=== PATIENT | male | born 1980 | race Hispanic/Latino ===

== ENCOUNTER → 2018-04-29 | Outpatient (CLI) | payer OTHER ==
[~2018-04-29] MED LIST: DIATRIZOATE MEGL/DIATRIZOA SOD 30 ML BTL PO ONE; IOPAMIDOL 370 MG/ML 200 ML INFUS..BTL INJ ONE; SODIUM CHLORIDE 0.9% 50ML 50 ML ONE
[2018-04-29 18:41] LABS: BLOOD UREA NITROGEN 6 mg/dL (7-26); BUN/CREATININE RATIO 8 (6-25); EST GLOMERULAR FILTRATION RATE > 60 ML/MIN (60-)
--- NOTE | 2018-04-30 08:36 | Diagnostic Imaging Report ---
EXAMINATION: CT of the abdomen and pelvis with contrast. TECHNIQUE: Helical CT images of the abdomen and pelvis were performed from the lung bases to the lesser trochanters after the intravenous administration of 100 cc of Omnipaque 300 and the oral administration of positive enteric contrast. Coronal and sagittal reformatted images were obtained.Dose modulation, iterative reconstruction, and/or weight based adjustment of the mA/kV was utilized to reduce the radiation dose to as low as reasonably achievable. COMPARISON: None. CLINICAL HISTORY:Abdominal pain, evaluate for appendicitis DISCUSSION: ABDOMEN/PELVIS: LOWER THORAX:Unremarkable. HEPATOBILIARY: No focal hepatic lesions. No intra-or extrahepatic biliary ductal dilation. Cholelithiasis. No inflammatory change. SPLEEN: No splenomegaly. PANCREAS: No focal masses or ductal dilatation. ADRENALS: No adrenal nodules. KIDNEYS/URETERS: No hydronephrosis, stones, or solid mass lesions. PELVIC ORGANS/BLADDER: The bladder is normal. PERITONEUM/RETROPERITONEUM: No free air or fluid. LYMPH NODES: No intra-abdominal, retroperitoneal, pelvic or inguinal lymphadenopathy. VESSELS: The celiac trunk,superior and inferior mesenteric and bilateral renal arteries are patent The portal, superior mesenteric and splenic veins are patent. GI TRACT: Inflammatory process within the right lower quadrant adjacent to the cecum and below the terminal ileum. The appendix is not well delineated within the inflammatory process. No adjacent abscess or free air. BONES AND SOFT TISSUE: No bony destructive lesions. No soft tissue abnormalities. IMPRESSION: Probable ruptured and contained subacute appendicitis in the right lower quadrant. No abscess. Cholelithiasis. (Per the sleep lab technologist patient was not in distress, patient's physician will be notified during his office hours) Signed by: Dr. Washington Elizabeth M.D. on 04/30/2018 8:32 AM
== END ==
LOC: CT 17:46
PROVIDERS: ATTEND Surgery
DX: R10.31 Right lower quadrant pain (principal); K38.9 Disease of appendix, unspecified; K80.20 Calculus of gallbladder without cholecystitis without obstruction
CPT/HCPCS: 36415; 74177; 82565; 84520; Q9663; Q9967

== ENCOUNTER → 2018-07-17 | Outpatient (CLI) | payer OTHER ==
[2018-07-17 16:20] LABS: BLOOD UREA NITROGEN 11 mg/dL (7-26); BUN/CREATININE RATIO 13 (6-25); CREATININE, SERUM 0.82 mg/dL (0.72-1.25); EST GLOMERULAR FILTRATION RATE > 60 ML/MIN (60-)
--- NOTE | 2018-07-17 17:43 | Diagnostic Imaging Report ---
EXAM: CT Abdomen and Pelvis WITH contrast INDICATION: Pain COMPARISON: 04/29/2018 CT, no report available TECHNIQUE: Abdomen and Pelvis was scanned utilizing a multidetector helical scanner after administration of IV contrast. Coronal and sagittal reformations were obtained. IV CONTRAST: 100 mL Isovue-370 COMPLICATIONS: None RADIATION DOSE: Total DLP:566 mGy*cm Estimated effective dose: (DLP x 0.015 x size factor) mSv CTDIvol has been reviewed. It is below the limits set by the Radiation Protocol Committee (RPC). Appropriate CT dose reduction techniques were utilized. FINDINGS: Abdomen: Lung Bases: No acute findings. Solid Organs: Mild hepatic steatosis. Calcified gallstones with no distinct inflammatory changes. Liver, adrenals, kidneys, spleen, and pancreas unremarkable. Upper GI Tract: No small bowel obstructive changes. Vascularity: No aortic aneurysm. Lymph Nodes: No free fluid or free air. No ventral wall hernia. Other: None. Pelvis: Bladder: Unremarkable. Other: No inguinal hernia. Colon: Minimal stranding at the cecal apex is present, decreased compared with previous study. Bones: L5-S1 degenerative changes. IMPRESSION: 1. Mild stranding at the cecal apex, decreased compared with previous study. Normal appendix not well visualized. Per paperwork, patient has not had prior appendectomy. Findings of mild appendicitis favored. Clinical/laboratory correlation recommended. 2. Cholelithiasis. 3. Hepatic steatosis. Signed by: Dr. Glynn Gaspar MD on 07/17/2018 5:40 PM
== END ==
LOC: CT 15:21
PROVIDERS: ATTEND Surgery
DX: R19.03 Right lower quadrant abdominal swelling, mass and lump (principal)
CPT/HCPCS: 36415; 74177; 82565; 84520; Q9967